=== PATIENT | male | born 1975 | race Two or more races ===

== ENCOUNTER 2023-02-08 16:21 | Emergency (ER) | payer MEDICAID ==
[~2023-02-08] VITALS: Ht 170.2 cm; Wt 84.0 kg
[2023-02-08 16:41] VITALS: BP 146/97
[2023-02-08] MEDS ORDERED: ONDANSETRON 4MG ODT PO ONE (19:15)
[2023-02-08] MEDS ORDERED: FAMOTIDINE 20MG TABLET PO ONE (19:15)
[2023-02-08] MEDS ORDERED: FAMO-135 MT (19:27)
[2023-02-08] MEDS ORDERED: ONDA4TAB11 PO (19:27)
== END 2023-02-08 20:31 | disposition home or self-care (01) ==
LOC: ER 16:40
DX: K21.9 Gastro-esophageal reflux disease without esophagitis (principal)
CPT/HCPCS: 99281

== ENCOUNTER 2023-07-31 11:06 | Emergency (ER) | payer MEDICAID ==
[~2023-07-31] VITALS: Ht 175.3 cm; Wt 63.0 kg
[~2023-07-31 11:06] MED LIST: FAMO-135 MT; ONDA4TAB11 PO
[2023-07-31 11:10] VITALS: BP 135/90; O2SAT 98
[2023-07-31] MEDS ORDERED: ACETAMINOPHEN 325MG TABLET PO ONE (13:15)
[2023-07-31 14:49] VITALS: TEMP 100.5
[2023-07-31] MEDS ORDERED: ACETAMINOPHEN 325MG TABLET PO NR (14:49)
[2023-07-31 15:14] VITALS: PULSE 86; RESP 18
[2023-07-31] MEDS ORDERED: NIRM1TAB PO (16:39)
== END 2023-07-31 16:45 | disposition home or self-care (01) ==
LOC: ER 11:06
DX: U07.1 COVID-19 (principal); E11.9 Type 2 diabetes mellitus without complications; Z90.49 Acquired absence of other specified parts of digestive tract; Z98.890 Other specified postprocedural states
CPT/HCPCS: 99283; 87426; C9803